=== PATIENT | male | born 1980 | race Two or more races ===

== ENCOUNTER 2023-12-28 09:11 | Emergency (ER) | payer MEDICAID ==
[~2023-12-28] VITALS: Ht 188 cm; Wt 116.8 kg
[2023-12-28 09:42] VITALS: BP 142/91; PULSE 103; RESP 16; TEMP 98.6; O2SAT 97
[2023-12-28] MEDS: KETOROLAC TROMETH 60MG/2ML VIAL IM ONE (09:54)
[2023-12-28] MEDS ORDERED: TRAM-626 PO (10:53)
== END 2023-12-28 10:57 | disposition home or self-care (01) ==
LOC: ER 09:11
DX: M23.8X2 Other internal derangements of left knee (principal); M25.562 Pain in left knee; I10 Essential (primary) hypertension
CPT/HCPCS: 73562; 96372; 99283; J1885

== ENCOUNTER 2024-03-24 08:55 | Inpatient (IN) | payer MEDICAID ==
[~2024-03-24] VITALS: Ht 188 cm; Wt 135.6 kg
[~2024-03-24 08:55] MED LIST: BACL10TA PO; LIDO1.8P TOP; TRAM-626 PO
[2024-03-24 10:06] VITALS: PULSE 102; RESP 20; O2SAT 97
--- NOTE | 2024-03-24 11:34 | ED.PDOC ---
GI ASSESSMENT HPI Comments 43 y.o male with PMHx of Liver cirrhosis, DM, HTN and DM, presents to the ED via EMS for a chief complaint of abdominal distention and pain that started 4-5 days ago. Patient reports being seen at this hospital around February 2024 to get a paracentesis done, was admitted but ended up leaving against medical advice s/p being told he was not "distended enough to be drained". Patient states now distention has increased which is causing SOB and abdominal discomfort with movement and bending. Patient's last paracentesis was 11 months ago, had about 8 liters drained. Patient has a PCP appointment until May of 2024 but is unable to wait any longer to get a paracentesis. Patient denies any nausea, vomiting, diarrhea, fever, chills, chest pain, dysuria. He is also taking Baclofen for left knee pain and has a history of cocaine, alcohol and tobacco use [facility] records from his last visit. Chief Complaint: Abdominal Pain Time Seen by MD: 11:09 Primary Care Provider: none Reviewed Notes: Nurses Notes, Medications, Allergies Allergies: Coded Allergies: NO KNOWN ALLERGIES (Unverified , 12/28/23) Home Meds Active Scripts Tramadol HCl (Tramadol HCl) 50 Mg Tab, 50 MG PO TID, #20 TAB Prov:AZ TEJEDA 12/28/23 Reported Medications Lidocaine (Ztlido) 1.8 % Pad, 1 PATCH TOP DAILYPRN PRN 02/29/24 Baclofen (Baclofen) 10 Mg Tab, 1 TAB PO BID 02/29/24 Information Source: Patient Mode of Arrival: EMS Timing: Days (4-5) Duration: Since onset Quality: Aching Vomitus: None Stool: Normal Severity: Moderate Recent: None Pain Location: Diffuse Associated sign and symptoms: Abdominal Pain, Other (SOB ) Past Medical History PAST MEDICAL HISTORY: DM, HTN, Liver Surgical History (Other): paracentesis, left clavicle and bone graft. Family History Family History: Reviewed,noncontributory to illness Social History Smoker: Non-Smoker Alcohol: Denies ETOH Use Drugs: Denies Drug Use Lives In: Home Constitutional: denies: chills, diaphoresis, fatigue, fever, malaise, sweats, weakness, others EENTM: denies: blurred vision, double vision, ear bleeding, ear discharge, ear drainage, ear pain, ear ringing, eye pain, eye redness, hearing loss, mouth pain, mouth swelling, nasal discharge, nose bleeding, nose congestion, nose pa in, photophobia, tearing, throat pain, throat swelling, voice changes, others Respiratory: reports: SOB at rest, shortness of breath; denies: cough, hemoptysis, orthopnea, SOB with excertion, stridor, wheezing, others Cardiovascular: denies: chest pain, dizzy spells, diaphoresis, Dyspnea on exertion, edema, irregular heart beat, left arm pain, lightheadedness, palpitations, PND, syncope, others Gastrointestinal: reports: abdomen distended, abdominal pain; denies: blood streaked bowels, constipated, diarrhea, dysphagia, difficulty swallowing, hematemesis, melena, nausea, poor appetite, poor fluid intake, rectal bleeding, rectal pain, vomiting, others Genitourinary: denies: burning, dysuria, flank pain, frequency, hematuria, incontinence, penile discharge, penile sore, pain, testicle pain, testicle swelling, urgency, others Neurological: denies: dizziness, fainting, headache, left sided numbness, left sided weakness, numbness, paresthesia, pre-existing deficit, right sided numbness, right sided weakness, seizure, speech problems, tingling, tremors, weakness, others Musculoskeletal: denies: back pain, gout, joint pain, joint swelling, muscle pain, muscle stiffness, neck pain, others Integumetry: denies: bruises, change in color, change in hair/nails, dryness, laceration, lesions, lumps, rash, wounds, others Allergic/Immunocompromised: denies: Difficulty Healing, Frequent Infections, H eliana, Itching, others Hematologic/Lymphatic: denies: anemia, blood clots, easy bleeding, easy bruising, swollen glands, others Endocrine: denies: excessive hunger, excessive sweating, excessive thirst, excessive urination, flushing, intolerance to cold, intolerance to heat, unexplained weight gain, unexplained weight loss, others Psychiatric: denies: anxiety, bipolar disorder, depression, hopeless, panic disorder, schizophrenia, sleepless, suicidal, others All Other Systems: Reviewed and Negative Physical Exam General Appearance: Mild Distress HEENT: Other (Pupils symmetric. Moist mucous membranes.) Neck: Full Range of Motion, Normal Inspection Respiratory: Decreased Breath Sounds, No Accessory Muscle Use, Other (Tachypneic) Cardiovascular: No JVD, Tachycardia Breast Exam: Deferred Gastrointestinal: Diffuse, Distended, Tenderness, Other (Severe ascites) Genitalia: Deferred Pelvic: Deferred Rectal: Deferred Extremities: Normal inspection, Normal range of motion, Non-tender Neurologic: Alert (Oriented x4), Normal Affect, Normal Mood, Other (Ambulatory without difficulty. No gross focal deficit.) Cerebellar Function: NOT DONE Reflexes: NOT DONE Skin: Dry, Normal Color, Warm Lymphatic: NOT DONE Was a procedure done? Was a procedure done?: No GI differential Dx Differential Diagnosis: Constipation, Hepatitis, Inflammatory BD, Ischemic Bowel, UTI, Electrolyte Imbalance, Bacterial, Parasitic, Viral, Impaction, Esophageal Varicies, Other (Decompensated liver failure with severe ascites) Other Differential Diagnosis Spontaneous bacterial peritonitis X-Ray, Labs, Meds, VS Vital Signs Date Time Temp Pulse Resp B/P (MAP) Pulse Ox O2 Delivery O2 Flow Rate FiO2 03/24/24 12:53 104 19 121/85 03/24/24 12:53 104 19 121/85 (97) 95 03/24/24 11:49 133/76 03/24/24 11:49 102 18 133/76 03/24/24 10:06 102 20 97 Room Air* 0 21 03/24/24 09:06 99.0 104 22 130/74 (92) 99 03/24/24 08:58 99.0 104 22 130/74 (92) 99 99.0 Lab Test 03/24/24 12:30 03/24/24 11:38 Range/Units Urine Color Yellow Yellow Urine Clarity Clear Clear Urine pH 6.0 5.0-9.0 Urine Specific [place] 1.019 1.001-1.035 Urine Protein Negative Negative Urine Ketones Negative Negative Urine Blood Negative Negative /uL Urine Nitrite Negative Negative Urine Bilirubin Negative Negative Urine Urobilinogen 6 Negative mg/dL Urine Leukocyte Esterase Negative Negative /uL Urine RBC None seen 0 - 3 /hpf Urine WBC <1 0 - 3 /hpf Urine Squamous Epithelial Cells Few <5 /hpf Urine Bacteria Few H None Seen /hpf Urine Mucus Few None Seen Urine Glucose Trace Normal mg/dL White Blood Count 6.5 4.4-10.8 10^3/uL Red Blood Count 3.65 L 4.5-5.90 10^6/uL Hemoglobin 11.8 L 13.5-17.5 g/dL Hematocrit 34.9 L 41.0-53.0 % Mean Corpuscular Volume 95.6 80.0-100.0 fL Mean Corpuscular Hemoglobin 32.3 H 28.0-32.0 pg Mean Corpuscular Hemoglobin Concent 33.8 32.0-36.0 g/dL Red Cell Distribution Width 15.3 H 11.8-14.3 % Platelet Count 199 140-450 10^3/uL Mean Platelet Volume 7.6 6.9-10.8 fL Neutrophils (%) (Auto) 66.9 37.0-80.0 % Lymphocytes (%) (Auto) 20.5 10.0-50.0 % Monocytes (%) (Auto) 9.2 0.0-12.0 % Eosinophils (%) (Auto) 2.9 0.0-7.0 % Basophils (%) (Auto) 0.5 0.0-2.0 % Neutrophils # (Auto) 4.4 1.6-8.6 10 ^3/uL Lymphocytes # (Auto) 1.3 0.4-5.4 10 ^3/uL Monocytes # (Auto) 0.6 0-1.3 10 ^3/uL Eosinophils # (Auto) 0.2 0-0.8 10 ^3/uL Basophils # (Auto) 0 0-0.2 10 ^3/uL Nucleated Red Blood Cells 0.0 % Sodium Level 140 136-145 mmol/L Potassium Level 3.5 3.5-5.1 mmol/L Chloride Level 110 H 98-107 mmol/L Carbon Dioxide Level 25 20-31 mmol/L Anion Gap 5 5-15 Blood Urea Nitrogen 10 9-23 mg/dL Creatinine 0.75 0.700-1.30 mg/dL Glomerular Filtration Rate Calc 116 >90 mL/min BUN/Creatinine Ratio 13.3 10.0-20.0 Serum Glucose 80 74-106 mg/dL Calcium Level 8.4 L 8.7-10.4 mg/dL Total Bilirubin 0.9 0.2-1.0 mg/dL Aspartate Amino Transferase (AST) 77 H 13-40 U/L Alanine Aminotransferase (ALT) 32 7-40 U/L Alkaline Phosphatase 195 H 46-116 U/L Ammonia 108 H 11-32 umol/L Total Protein 8.0 5.7-8.2 g/dL Albumin 2.7 L 3.2-4.8 g/dL Current Medications Medications (Trade) Dose Ordered Sig/Laverne Route Start Time Stop Time Status Last Admin Morphine Sulfate 4 mg ONCE ONCE IV 03/24/24 11:15 03/24/24 11:16 DC 03/24/24 11:49 Ondansetron HCl (Zofran) 4 mg ONCE ONCE IV 03/24/24 11:15 03/24/24 11:16 DC 03/24/24 11:49 Furosemide (Lasix Injection) 40 mg ONCE ONCE IV 03/24/24 11:15 03/24/24 11:16 DC 03/24/24 11:49 Spironolactone (Aldactone) 50 mg ONCE ONCE PO 03/24/24 11:15 03/24/24 11:16 DC 03/24/24 11:50 X-Ray, Labs, Meds, VS Comment 43 y.o male with PMHx of Liver cirrhosis, DM, HTN and DM complaining of abdominal distention Vitals remarkable for heart rate 104, respiratory rate 22 Exam remarkable for diffuse abdominal distention consistent with severe ascites Rhythm strip independently interpreted by me: Sinus tach, rate 102, no ectopy. CT abdomen and pelvis IMPRESSION: 1. Cirrhosis and stigmata of portal hypertension. 2. Large volume ascites. CBC unremarkable, CMP unremarkable, ammonia level elevated at 108, UA unremarkable Patient treated with the following in the ED: Morphine 4 mg IV, Zofran 4 mg IV, Lasix 40 mg IV, Aldactone 50 mg p.o. Patient did not have significant urine output in the ED, however pain improved. Plan is to admit the patient for diagnostic and therapeutic paracentesis Time of 1ST Reevaluation: 11:22 Reevaluation 1ST: Unchanged Patient Education/Counseling: Diagnosis, Treatment, Prognosis Family Education/Counseling: No Family Present Departure 1 Departure Time of Disposition: 15:21 Impression: Primary Impression: Liver failure Qualified Codes: K72.90 - Hepatic failure, unspecified without coma Additional Impression: Ascites Qualified Codes: K70.31 - Alcoholic cirrhosis of liver with ascites Disposition: ADMITTED INPATIENT Admit to: Med Surg Condition: Guarded Critical Care Note Critical Care Time?: No Stability Stability form required: No I personally scribed for HANNAH YUNG MD ([email or web address]) on 03/24/24 at 11:34. Electronically submitted by Niesha Barth ([facility]). HANNAH YUNG MD Mar 24, 2024 11:34
[2024-03-24] MEDS: ONDANSETRON HCL 4 MG/2 ML VIAL IV ONE (11:49)
[2024-03-24] MEDS: FUROSEMIDE 40 MG/4 ML VIAL IV ONE (11:49)
[2024-03-24] MEDS: MORPHINE SULFATE 4 MG/ML SYR/VIAL IV ONE (11:49)
[2024-03-24] MEDS: SPIRONOLACTONE 25 MG TAB PO ONE (11:50)
--- NOTE | 2024-03-24 11:56 | DVH ---
Exam: CT CT AB PEL WO CON-NO ORAL OR IV History: abd pain/distention Comparison Study: Ultrasound of the abdomen dated 03/01/2024 Technique: Multidetector spiral CT of the abdomen and pelvis was performed from lung bases to pubic s ymphysis. Imaging was performed without intravenous contrast. Coronal and sagittal multiplanar refor mats were obtained from the axial data set by the technologist. Radiation Dose : 1. Abdomen/Pelvis: CTDIvol 24.21 mGy, DLP 1566.5 mGy*cm. Findings: Evaluation of vasculature and solid organs is limited due to lack of intravenous contrast use. Lung Bases: Bilateral lower lobe atelectasis. Visualized portions of the heart and pericardium are un remarkable. Liver: The liver is shrunken and nodular in contour. Gallbladder and Biliary Tree: The gallbladder is unremarkable. No intrahepatic or extrahepatic bilia ry ductal dilatation. Spleen: Spleen is enlarged measuring 16.7 cm. Pancreas: The pancreas is grossly unremarkable. Adrenal Glands: Unremarkable Kidneys: Kidneys are unremarkable without calculi or hydronephrosis. GI tract: The stomach is grossly normal in appearance. No evidence of small bowel wall thickening or abnormal dilatation to suggest bowel obstruction. The colon is unremarkable. The appendix is visual ized and is normal. Peritoneum/mesentery/retroperitoneum. No evidence of free intraperitoneal air. Large volume abdominop elvic ascites. Increased number of mesenteric, periportal and retroperitoneal lymph nodes. A right pa ra-aortic lymph node measures 1.6 cm in short axis. Abdominal Wall: Unremarkable. Vasculature: The visualized abdominal aorta is normal in size and caliber. Evaluation of abdominal a nd pelvic vessels is limited due to lack of intravenous contrast. Urinary Bladder: Grossly unremarkable for degree of distention. Pelvic Organs: Unremarkable Musculoskeletal: No aggressive focal bony lesions, acute fractures or dislocation. Soft tissues: Body wall anasarca. IMPRESSION: 1. Cirrhosis and stigmata of portal hypertension. 2. Large volume ascites.
[2024-03-24 12:07] LABS: Basophils # (auto) 0 10 ^3/uL (0-0.2); Basophils % (auto) 0.5 % (0.0-2.0); Eosinophils # (auto) 0.2 10 ^3/uL (0-0.8); Eosinophils % (auto) 2.9 % (0.0-7.0); Hematocrit 34.9 % (41.0-53.0); Hemoglobin 11.8 g/dL (13.5-17.5); Lymphocytes # (auto) 1.3 10 ^3/uL (0.4-5.4); Lymphocytes % (auto) 20.5 % (10.0-50.0); Mean Corpuscular Hemoglobin 32.3 pg (28.0-32.0); Mean Corpuscular Hgb Conc. 33.8 g/dL (32.0-36.0); Mean Corpuscular Volume 95.6 fL (80.0-100.0); Monocytes # (auto) 0.6 10 ^3/uL (0-1.3); Monocytes % (auto) 9.2 % (0.0-12.0); Neutrophils # (auto) 4.4 10 ^3/uL (1.6-8.6); Neutrophils % (auto) 66.9 % (37.0-80.0); Platelet Count (auto) 199 10^3/uL (140-450); Red Blood Cells 3.65 10^6/uL (4.5-5.90); Red Cell Distribution Width 15.3 % (11.8-14.3); White Blood Cell 6.5 10^3/uL (4.4-10.8)
[2024-03-24 12:24] LABS: Alanine Aminotransferase 32 U/L (7-40); Anion Gap 5 (5-15); BUN/Creatinine Ratio 13.3 (10.0-20.0); Bilirubin, Total 0.9 mg/dL (0.2-1.0); Blood Urea Nitrogen 10 mg/dL (9-23); Carbon Dioxide 25 mmol/L (20-31); Glucose 80 mg/dL (74-106); Sodium 140 mmol/L (136-145)
[2024-03-24 12:32] LABS: Albumin 2.7 g/dL (3.2-4.8); Alkaline Phosphatase 195 U/L (46-116); Aspartate Aminotransferase 77 U/L (13-40); Calcium 8.4 mg/dL (8.7-10.4); Chloride 110 mmol/L (98-107); Potassium 3.5 mmol/L (3.5-5.1)
[2024-03-24 14:29] LABS: Urine Bacteria FEW /hpf (None Seen); Urine Blood Negative /uL (Negative); Urine Clarity Clear (Clear); Urine Color Yellow (Yellow); Urine Mucus FEW (None Seen); Urine Protein, UAD Negative (Negative); Urine Specific Gravity 1.019 (1.001-1.035); Urine Squamous Epithelial Cell FEW /hpf (<5); Urine Urobilinogen 6 mg/dL (Negative); Urine WBC <1 /hpf (0 - 3)
[2024-03-24] MEDS ORDERED: ONDANSETRON HCL 4 MG/2 ML VIAL IV PRN (16:45)
[2024-03-24] MEDS ORDERED: NITROGLYCERIN 0.4 MG SL TAB SL PRN (16:45)
[2024-03-24] MEDS ORDERED: traMADol HCL 50 MG TAB PO PRN (16:45)
[2024-03-24] MEDS ORDERED: ALBUMIN 25% 100 ML IV ONE (16:45)
[2024-03-24] MEDS ORDERED: MORPHINE SULFATE INJ 2 MG/ml SYRG IV PRN (16:45)
[2024-03-24] MEDS ORDERED: DOCUSATE SOD 100 MG CAP PO PRN (16:45)
--- NOTE | 2024-03-24 17:07 | DVHHP2 ---
History of Present Illness Reason for Visit: Alcoholic cirrhosis of liver with ascites History of Present Illness The patient is a 43-year-old male with past medical history of liver disease, hypertension, and diabetes mellitus who presented to [facility] ED with complaint of abdominal distention. Patient reports he was admitted at this hospital in February 2024 to get a paracentesis done, but ended up leaving against medical advice because he was being told his abdomen was not "distended enough to be drained". Patient reports symptoms progressively get worse with sh ortness of breaths, abdominal discomfort, difficulty bending, movement, getting worse that prompted this visit. Patient was seen and evaluated in the ED, laboratory data shows WBC 6.5, platelets 199, sodium 140, potassium 3.5, BUN 10, creatinine 0.75, GFR 116, glucose 80, AST 77, ALT 32, calcium 8.4, albumin 2.7, ammonia 108, blood pressure 121/85, heart rate 104, temperature 99.0 F, O2 saturation 97% on oxygen. Abdomen/pelvis CT revealing cirrhosis and stigmata of portal hypertension, last volume ascites. Patient was started on lactulose 30 mL by mouth, scheduled for possible ultrasound-guided paracentesis, please see medication orders section in the computer. On my assessment, patient denied chest pain, no headache, no dizziness, no diaphoresis, no abdominal pain at this moment, no diarrhea, no nausea, no vomiting, no fever, no chills. Patient was admitted for further evaluation and medical management. Past Medical History DM, HTN, Liver Disease Past Surgical History Paracentesis, left clavicle and bone graft. Family History Reviewed, noncontributory to the management of this case. Past Social History The patient lives at home, denies smoking, alcohol or illicit drugs abuse. Review of Systems Constitutional: No: Fever, Chills, Sweats, Weakness, Malaise, Other Eyes: No: Pain, Vision change, Conjunctivae inflammation, Eyelid inflammation, Other, Redness ENT: No: Ear pain, Ear discharge, Nose pain, Nose discharge, Nose congestion, Mouth pain, Mouth swelling, Throat pain, Throat swelling, Other Respiratory: Shortness of breath, Other (SOB at rest); No: Cough, Dry, SOB with excertion, Wheezing, Hemoptysis, Pleuritic Pain, Sputum, Wheezing Cardiovascular: No: Chest Pain, Palpitations, Orthopnea, Paroxysmal Noc. Dyspnea, Edema, Lt Headedness, Other Gastrointestinal: Abdominal Pain, Other (Distended abdomen); No: Nausea, Vomiting, Diarrhea, Constipation, Melena, Hematochezia Genitourinary: No Dysuria, No Frequency, No Incontinence, No Hematuria, No Retention, No Other Musculoskeletal: No: other, neck pain, shoulder pain, arm pain, back pain, hand pain, leg pain, foot pain Skin: No: Rash, Lesions, Jaundice, Bruising, Other Neurological: No: Weakness, Numbness, Incoordination, Change in speech, Confusion, Seizures, Other Allergies: Coded Allergies: NO KNOWN ALLERGIES (Unverified , 12/28/23) Exam Vital Signs Vital Signs Date Time Temp Pulse Resp B/P (MAP) Pulse Ox O2 Delivery O2 Flow Rate FiO2 03/24/24 12:53 104 19 121/85 03/24/24 12:53 95 03/24/24 10:06 Room Air* 0 21 03/24/24 09:06 99.0 General Appearance: Alert, Oriented X3, Cooperative, No acute distress HEENT: Atraumatic, PERRLA, EOMI, Mucous membr. moist/pink Respiratory: Clear to auscultation, Normal air movement Cardiovascular: Regular rate, Normal S1, Normal S2, No murmurs Abdominal: Normal bowel sounds, Soft, No tenderness, No masses, Other (Distended abdomen) Extremities: No clubbing, No cyanosis, No edema, Normal pulses, No tenderness/swelling Skin: No rashes, No breakdown, No significant lesion Neuro: Normal gait, Normal speech, Strength at 5/5 X4 ext, Normal tone, Sensation intact, Cranial nerves 3-12 NL, Reflexes 2+ Psych/Mental Status: Mental status NL, Mood NL Labs/Xrays Labs Test 03/24/24 12:30 03/24/24 11:38 Range/Units Urine Color Yellow Yellow Urine Clarity Clear Clear Urine pH 6.0 5.0-9.0 Urine Specific [place] 1.019 1.001-1.035 Urine Protein Negative Negative Urine Ketones Negative Negative Urine Blood Negative Negative /uL Urine Nitrite Negative Negative Urine Bilirubin Negative Negative Urine Urobilinogen 6 Negative mg/dL Urine Leukocyte Esterase Negative Negative /uL Urine RBC None seen 0 - 3 /hpf Urine WBC <1 0 - 3 /hpf Urine Squamous Epithelial Cells Few <5 /hpf Urine Bacteria Few H None Seen /hpf Urine Mucus Few None Seen Urine Glucose Trace Normal mg/dL White Blood Count 6.5 4.4-10.8 10^3/uL Red Blood Count 3.65 L 4.5-5.90 10^6/uL Hemoglobin 11.8 L 13.5-17.5 g/dL Hematocrit 34.9 L 41.0-53.0 % Mean Corpuscular Volume 95.6 80.0-100.0 fL Mean Corpuscular Hemoglobin 32.3 H 28.0-32.0 pg Mean Corpuscular Hemoglobin Concent 33.8 32.0-36.0 g/dL Red Cell Distribution Width 15.3 H 11.8-14.3 % Platelet Count 199 140-450 10^3/uL Mean Platelet Volume 7.6 6.9-10.8 fL Neutrophils (%) (Auto) 66.9 37.0-80.0 % Lymphocytes (%) (Auto) 20.5 10.0-50.0 % Monocytes (%) (Auto) 9.2 0.0-12.0 % Eosinophils (%) (Auto) 2.9 0.0-7.0 % Basophils (%) (Auto) 0.5 0.0-2.0 % Neutrophils # (Auto) 4.4 1.6-8.6 10 ^3/uL Lymphocytes # (Auto) 1.3 0.4-5.4 10 ^3/uL Monocytes # (Auto) 0.6 0-1.3 10 ^3/uL Eosinophils # (Auto) 0.2 0-0.8 10 ^3/uL Basophils # (Auto) 0 0-0.2 10 ^3/uL Nucleated Red Blood Cells 0.0 % Sodium Level 140 136-145 mmol/L Potassium Level 3.5 3.5-5.1 mmol/L Chloride Level 110 H 98-107 mmol/L Carbon Dioxide Level 25 20-31 mmol/L Anion Gap 5 5-15 Blood Urea Nitrogen 10 9-23 mg/dL Creatinine 0.75 0.700-1.30 mg/dL Glomerular Filtration Rate Calc 116 >90 mL/min BUN/Creatinine Ratio 13.3 10.0-20.0 Serum Glucose 80 74-106 mg/dL Calcium Level 8.4 L 8.7-10.4 mg/dL Total Bilirubin 0.9 0.2-1.0 mg/dL Aspartate Amino Transferase (AST) 77 H 13-40 U/L Alanine Aminotransferase (ALT) 32 7-40 U/L Alkaline Phosphatase 195 H 46-116 U/L Ammonia 108 H 11-32 umol/L Total Protein 8.0 5.7-8.2 g/dL Albumin 2.7 L 3.2-4.8 g/dL PATIENT: JESUS ALBERTO MALDONADO JRACCT: [id number] UNIT: [id number] : 1980 LOC: ER ROOM / BED: / AGE / SEX: 43 / M ADM STATUS: REG ER SERVICE 1115 ORDERING PHYSICIAN: HANNAH YUNG MD PROCEDURE(s): ABPL - CT AB PEL WO CON-NO ORAL OR IV REASON: abd pain/distention ORDER NUMBER(s): [id number], ACCESSION NUMBER(s): [id number] Exam: CT CT AB PEL WO CON-NO ORAL OR IV History: abd pain/distention Comparison Study: Ultrasound of the abdomen dated 03/01/2024 Technique: Multidetector spiral CT of the abdomen and pelvis was performed from lung bases to pubic symphysis. Imaging was performed without intravenous con trast. Coronal and sagittal multiplanar reformats were obtained from the axial data set by the technologist. Radiation Dose : 1. Abdomen/Pelvis: CTDIvol 24.21 mGy, DLP 1566.5 mGy*cm. Findings: Evaluation of vasculature and solid organs is limited due to lack of intravenous contrast use. Lung Bases: Bilateral lower lobe atelectasis. Visualized portions of the heart and pericardium are unremarkable. Liver: The liver is shrunken and nodular in contour. Gallbladder and Biliary Tree: The gallbladder is unremarkable. No intrahepatic or extrahepatic biliary ductal dilatation. Spleen: Spleen is enlarged measuring 16.7 cm. Pancreas: The pancreas is grossly unremarkable. Adrenal Glands: Unremarkable Kidneys: Kidneys are unremarkable without calculi or hydronephrosis. GI tract: The stomach is grossly normal in appearance. No evidence of small bowel wall thickening or abnormal dilatation to suggest bowel obstruction. The colon is unremarkable. The appendix is visualized and is normal. Peritoneum/mesentery/retroperitoneum. No evidence of free intraperitoneal air. Large volume abdominopelvic ascites. Increased number of mesenteric, periportal and retroperitoneal lymph nodes. A right para-aortic lymph node measures 1.6 cm in short axis. Abdominal Wall: Unremarkable. Vasculature: The visualized abdominal aorta is normal in size and caliber. Evaluation of abdominal and pelvic vessels is limited due to lack of intravenous contrast. Urinary Bladder: Grossly unremarkable for degree of distention. Pelvic Organs: Unremarkable Musculoskeletal: No aggressive focal bony lesions, acute fractures or dislocation. Soft tissues: Body wall anasarca. IMPRESSION: 1. Cirrhosis and stigmata of portal hypertension. 2. Large volume ascites. Assessment/Plan Assessment/Plan Liver failure Hepatic failure, unspecified without coma Abdominal pain Ascites Alcoholic cirrhosis of liver with ascites Plan 1. Admit to med surge unit 2. Breathing treatment 3. Pain control management 4. Management of fluids and electrolytes 5. Consultation for GI/hospitalist 6. Diagnostic tests abdomen/pelvis CT 7. DVT prophylaxis-on SCDs 8. Repeat labs CBC, CMP in a.m. 9. Continue with current medical management 10. Treatment plan discussed with patient and RN. Patient verbalized understanding. Plan discussed with: Patient, Other (RN) My Orders Orders - ADRIANA HENNING DNP Procedure Category Date Status Time Spironolactone PHA 03/25/24 Transmitted (Aldactone) 10:00 Lactulose Oral PHA 03/24/24 Transmitted 18:00 Paracentesis US 03/24/24 Transmitted 16:36 PTPTT LAB 03/24/24 Transmitted 16:36 Albumin Ivpb PHA 03/24/24 Transmitted 16:45 * Gi Dvh Data Governance Consultant CONS 03/24/24 Transmitted 16:36 Admit ADMIT 03/24/24 Transmitted 16:36 Allergies JEANNETTE 03/24/24 Transmitted 16:36 Code Status CODE 03/24/24 Transmitted 16:36 Sodium Chloride Lock PHA 03/24/24 Transmitted (Saline Lock Ns) 22:00 Oxygen Per Hour RT 03/24/24 Transmitted 16:36 Hydrocodone-Acet PHA 03/24/24 Transmitted 5/325mg Tab ([place] 16:45 Ondansetron Hcl PHA 03/24/24 Transmitted (Zofran) 16:45 Docusate Sodium PHA 03/24/24 Transmitted Capsule (Colace 16:45 Complete Blood Count LAB 03/25/24 Verified 04:00 Comprehensive LAB 03/25/24 Verified Metabolic Panel 04:00 Cardiac DIET 03/24/24 Transmitted Diet-2gna,Lofat,Lochol Dinner Condition: Serious [facility] 03/24/24 Transmitted 16:36 Bedrest With Bathroom JEANNETTE 03/24/24 Transmitted Privileg 16:36 Sequential [facility] 03/24/24 Transmitted Compression Device Nitroglycerin [facility] 03/24/24 Transmitted Sublingual (Ntrostat 16:45 Morphine Sulfate [facility] 03/24/24 Transmitted Injection 16:45 Notify Md Of Changes [facility] 03/24/24 Transmitted From Base 16:36 Emergency Dysrhythmia [facility] 03/24/24 Transmitted Protocol 16:36 Oxygen By Nasal RT 03/24/24 Transmitted Cannula 16:36 Problem List: (1) Liver failure (2) Alcoholic cirrhosis of liver with ascites (3) Abdominal pain (4) Ascites (5) Hepatic failure, unspecified without coma Date of Service: Mar 24, 2024 Billing Provider: ADRIANA HENNING DNP Common Visit Codes: [id number]-[id number] INP/OBS CARE (HIGH) ADRIANA HENNING DNP Mar 24, 2024 17:07
--- NOTE | 2024-03-24 17:20 | DVH ---
ULTRASOUND ABDOMEN LIMITED INDICATION: ASCITES TECHNIQUE: Ultrasound of the 4 quadrants of the abdominal cavity. COMPARISON: US ABDOMEN LIMITED on DOS: 02/29/24 FINDINGS: There is moderate amount of ascites with fluid seen in all 4 quadrants of the abdomen. IMPRESSION: 1. Moderate amount of ascites. HS:Y
[2024-03-24 17:48] LABS: INR 1.28 (0.9-1.15); Partial Thromboplastin Time 29.4 SEC (24.5-34.5); Prothrombin Time 13.2 sec (9.3-11.8)
[2024-03-24] MEDS: LACTULOSE 20Gm/30ML SOLN PO SCH (18:36)
[2024-03-24] MEDS: ALBUMIN 25% 100 ML IV ONE (18:49)
[2024-03-24 20:03] VITALS: PULSE 85; RESP 20; O2SAT 99
[2024-03-24 20:47] VITALS: PULSE 84; RESP 19; O2SAT 97
[2024-03-24 21:35] VITALS: BP 134/80; PULSE 85; RESP 20; TEMP 98.4; O2SAT 98
[2024-03-24 21:50] VITALS: BP 134/80; PULSE 85; RESP 20; TEMP 98.4; O2SAT 98
[2024-03-24] MEDS: SODIUM CHLOR 0.9% PF (SALINE LOCK) 10ML VIAL/SYR IV SCH (22:00)
[2024-03-24] MEDS: HYDROcodone-ACET 5/325MG TAB PO PRN (22:10)
[2024-03-24] MEDS ORDERED: GLIP5TAB21 PO (23:45)
[2024-03-25 05:00] VITALS: BP 98/63; PULSE 83; RESP 19; TEMP 98; O2SAT 97
[2024-03-25 07:00] LABS: Basophils # (auto) 0.1 10 ^3/uL (0-0.2); Basophils % (auto) 1.1 % (0.0-2.0); Eosinophils # (auto) 0.2 10 ^3/uL (0-0.8); Hematocrit 29.9 % (41.0-53.0); Hemoglobin 10.3 g/dL (13.5-17.5); Lymphocytes # (auto) 1.3 10 ^3/uL (0.4-5.4); Lymphocytes % (auto) 23.9 % (10.0-50.0); Mean Corpuscular Hemoglobin 32.7 pg (28.0-32.0); Mean Corpuscular Hgb Conc. 34.3 g/dL (32.0-36.0); Mean Corpuscular Volume 95.3 fL (80.0-100.0); Monocytes # (auto) 0.7 10 ^3/uL (0-1.3); Monocytes % (auto) 12.5 % (0.0-12.0); Neutrophils # (auto) 3.4 10 ^3/uL (1.6-8.6); Neutrophils % (auto) 59.5 % (37.0-80.0); Nucleated Red Blood Cells % 0.3 %; Platelet Count (auto) 162 10^3/uL (140-450); Red Blood Cells 3.14 10^6/uL (4.5-5.90); Red Cell Distribution Width 15.1 % (11.8-14.3); White Blood Cell 5.6 10^3/uL (4.4-10.8)
[2024-03-25 07:16] LABS: Alanine Aminotransferase 25 U/L (7-40); Anion Gap 7 (5-15); BUN/Creatinine Ratio 13.4 (10.0-20.0); Blood Urea Nitrogen 11 mg/dL (9-23); Carbon Dioxide 22 mmol/L (20-31); Potassium 3.9 mmol/L (3.5-5.1); Sodium 140 mmol/L (136-145)
[2024-03-25 07:17] LABS: Albumin 2.4 g/dL (3.2-4.8); Alkaline Phosphatase 165 U/L (46-116); Aspartate Aminotransferase 83 U/L (13-40); Calcium 8.3 mg/dL (8.7-10.4); Chloride 111 mmol/L (98-107); Glucose 120 mg/dL (74-106); Total Protein 7.1 g/dL (5.7-8.2)
[2024-03-25 08:25] VITALS: PULSE 80; RESP 20; O2SAT 96
[2024-03-25 09:00] VITALS: BP 106/58; PULSE 80; RESP 20; TEMP 97.8; O2SAT 96
[2024-03-25] MEDS: SPIRONOLACTONE 25 MG TAB PO SCH (10:02)
--- NOTE | 2024-03-25 11:42 | DVH ---
US PARACENTESIS, HISTORY: ASCITES PROCEDURE: Informed consent was obtained. The patient was placed in supine position. A limited locali zation ultrasound of the abdomen was obtained, and the skin site over the largest pocket of fluid was marked and entry site was prepped with chlorhexidine which was allowed to dry and draped in the usua l sterile fashion. Time out was performed. Following administration of 1% lidocaine local anesthetic, a 5 [place] centesis needle catheter was percutaneously inserted into the peritoneal collection until fluid was aspirated. The catheter was advanced into the fluid collection and [place] [id number] cc of fluid was aspirated and specimen sent for appropriate cultures/cytology/cultures and c ytology. The catheter was then removed and a sterile dressing applied. No immediate complication was identified. FINDINGS: Limited ultrasound imaging demonstrates moderate to large ascites. Aspirated fluid was clou dy and pink. IMPRESSION: US-guided paracentesis with 10.5L removed.
[2024-03-25] MEDS: ALBUMIN 25% 100 ML IV SCH (12:45)
[2024-03-25 13:00] VITALS: BP 97/55; PULSE 81; RESP 18; TEMP 98.6; O2SAT 95
[2024-03-25 14:45] LABS: Body Fluid pH 9
[2024-03-25 14:58] LABS: Body Fluid Polymorphonuclear 10 % (0-25); Body Fluid Red Blood Cells 4772 CUMM (0-2000); Body Fluid White Blood Cells 122 CUMM (0-200)
--- NOTE | 2024-03-25 16:23 | DVHCONRES ---
Date Seen: Mar 25, 2024 Resident Creating Document: AISHA GEORGES RESIDENT Referring Physician Roberto LEMUS Reason for Consultation Liver Cirrhosis History of Present Illness Mr. Maldonado, a 43-year-old male with a history of liver disease, hypertension, and diabetes mellitus presented to [facility] ED with abdominal distention. He had previously left against medical advice in February 2024 when told his abdomen was not distended enough for paracentesis. His symptoms worsened, prompting this visit. Lab results showed elevated ammonia levels and other abnormalities. A CT scan revealed cirrhosis and portal hypertension with ascites. He was started on lactulose and scheduled for possible ultrasound- guided paracentesis. He denied other symptoms like chest pain or nausea and was admitted for further evaluation and management. His past medical history includes diabetes, hypertension, and liver disease, with past surgeries including paracentesis and a left clavicle bone graft. He denies smoking, alcohol, or drug abuse. Past Medical History DM, HTN, Liver Disease, liver cirrhosis, ascites, polysubstance abuse. Past Surgical History Paracentesis, left clavicle and bone graft. Family History: Patient reports no known family medical history. Family History Reviewed, noncontributory to the management of this case. Social History The patient lives at home, denies smoking, alcohol or illicit drugs abuse. All the patient denies, patient's previous UDS source positive for cocaine, questionable polysubstance abuse history. Allergies: Coded Allergies: NO KNOWN ALLERGIES (Unverified , 12/28/23) Home Meds Active Scripts Tramadol HCl (Tramadol HCl) 50 Mg Tab, 50 MG PO TID, #20 TAB Prov:AZ TEJEDA 12/28/23 Reported Medications Glipizide (Glipizide) 5 Mg Tab, 1 TAB PO DAILY 03/24/24 Lidocaine (Ztlido) 1.8 % Pad, 1 PATCH TOP DAILYPRN PRN 02/29/24 Baclofen (Baclofen) 10 Mg Tab, 1 TAB PO BID 02/29/24 Current Medications Current Medications Medications (Trade) Dose Ordered Sig/Laverne Route PRN Reason Start Time Stop Time Status Last Admin Spironolactone (Aldactone) 25 mg DAILY PO 03/25/24 10:00 03/25/24 15:26 DC 03/25/24 10:02 Lactulose 30 ml Q6HR PO 03/24/24 18:00 03/25/24 15:26 DC 03/25/24 05:36 Sodium Chloride (Saline Lock Ns) 10 ml Q8HR IV 03/24/24 22:00 03/25/24 15:26 DC 03/25/24 12:34 Acetaminophen/ Hydrocodone Bitart ([place] 5/325MG Tab) 1 tab Q4HP PRN PO MODERATE PAIN (4-6 PAIN SCALE) 03/24/24 16:45 03/25/24 15:26 DC 03/24/24 22:10 Ondansetron HCl (Zofran) 4 mg Q4HP PRN IV NAUSEA / VOMITING 03/24/24 16:45 03/25/24 15:26 DC Docusate Sodium (Colace Capsule) 100 mg BIDPRN PRN PO FOR CONSTIPATION 03/24/24 16:45 03/25/24 15:26 DC Nitroglycerin (Ntrostat Sublingual) 0.4 mg Q5MINP PRN SL FOR CHEST PAIN 03/24/24 16:45 03/25/24 15:26 DC Morphine Sulfate 2 mg Q30M PRN IV FOR CHEST PAIN 03/24/24 16:45 03/25/24 15:26 DC Tramadol HCl (Ultram) 50 mg Q6HP PRN PO MILD PAIN (1-3 PAIN SCALE) 03/24/24 16:45 03/25/24 15:26 DC Albumin Human 100 ml @ 100 mls/hr Q1HR IV 03/25/24 12:00 03/25/24 13:59 DC 03/25/24 12:45 Review of Systems CONSTITUTIONAL: Fever, night sweats, weight loss, Lymphadenopathy, ecchymoses, fatigue: Negative DERMATOLOGIC: Rash, New/growing/changing skin lesions: Negative HEENT: Vision change, eye pain, Rhinorrhea, sinus pain, epistaxis, dysphagia, odynophagia, globus sensation, Change in hearing, tinnitus, vertigo, otalgia, Dental problems, oral ulcers or lesions: : Negative ENDOCRINE: Weight change, heat or cold intolerance, tremor, insomnia, neck pain or swelling, Polyuria, polydipsia, polyphagia, Abnormal hair growth, change in nails: Negative CARDIOVASCULAR: Chest pain, palpitations, syncope, Edema, cyanosis, claudication, Orthopnea, paroxysmal nocturnal dyspnea: Negative PULMONARY: Shortness of breath, dyspnea with exertion, Cough, hemoptysis, wheezing, chest pain : Negative GI: Nausea, vomiting, diarrhea, melena, hematochezia, Change in appetite, abdominal pain, change in bowel habits or stools: Negative abdominal swelling, distention, full flanks, abdominal pressure: Positive : Dysuria, frequency, urgency, Urinary incontinence, hematuria, foamy urine, nocturia, Change in libido, erectile dysfunction, Change in menses, dysmenorrhea, dyspaerunia, pelvic pain: : Negative MUSCULOSKELETAL: Joint swelling or pain, muscle pain, back pain: : Negative NEUROLOGIC: Headache, scotoma, Change in smell or taste, change in facial muscles, Muscle weakness, paresthesias, anesthesia, Ataxia, change in speech: Negative PSYCHIATRIC: Depression, anxiety, hallucinations, jacki, suicidal/homicidal thoughts, Binging, purging: Negative Vital Signs Vital Signs Date Time Temp Pulse Resp B/P (MAP) Pulse Ox O2 Delivery O2 Flow Rate FiO2 03/25/24 13:00 98.6 81 18 97/55 (69) 95 98.6 03/25/24 08:25 Room Air* 0 21 Physical Exam GENERAL APPEARANCE: Well developed, well nourished, alert and cooperative, and appears to be in no acute distress. HEAD: normocephalic. EYES: PERRL, EOMI. Fundi normal, vision is grossly intact. EARS: External auditory canals and tympanic membranes clear, hearing grossly intact. NOSE: No nasal discharge. THROAT: Oral cavity and pharynx normal. No inflammation, swelling, exudate, or lesions. Teeth and gingiva in good general condition. NECK: Neck supple, non-tender without lymphadenopathy, masses or thyromegaly. CARDIAC: Normal S1 and S2. No S3, S4 or murmurs. Rhythm is regular. There is no peripheral edema, cyanosis or pallor. Extremities are warm and well perfused. Capillary refill is less than 2 seconds. No carotid bruits. LUNGS: Clear to auscultation and percussion without rales, rhonchi, wheezing or diminished breath sounds. ABDOMEN: Positive bowel sounds. Soft, nondistended, nontender. No guarding or rebound. No masses. Flanks we will, mildly distended, status post paracentesis. MUSKULOSKELETAL: Adequately aligned spine. ROM intact spine and extremities. No joint erythema or tenderness. Normal muscular development. Normal gait. BACK: Examination of the spine reveals normal gait and posture, no spinal deformity, symmetry of spinal muscles, without tenderness, decreased range of motion or muscular spasm. EXTREMITIES: No significant deformity or joint abnormality. No edema. Peripheral pulses intact. No varicosities. LOWER EXTREMITY: Examination of both feet reveals all toes to be normal in size and symmetry, normal range of motion, normal sensation with distal capillary filling of less than 2 seconds without tenderness, swelling, discoloration, nodules, weakness or deformity; examination of both ankles, knees, legs, and hips reveals normal range of motion, normal sensation without tenderness, swelling, discoloration, crepitus, weakness or deformity. NEUROLOGICAL: CN II-XII intact. Strength and sensation symmetric and intact throughout. Reflexes 2+ throughout. Cerebellar testing normal. SKIN: Skin normal color, texture and turgor with no lesions or eruptions. PSYCHIATRIC: The mental examination revealed the patient was oriented to person, place, and time. The patient was able to demonstrate good judgement and reason, without hallucinations, abnormal affect or abnormal behaviors during the examination. Patient is not suicidal. Labs/Diagnostic Data Labs Test 03/25/24 11:50 03/25/24 06:21 03/24/24 17:13 03/24/24 12:30 Range/Units Body Fluid Source Peritoneal fluid Body Fluid pH 9 Body Fluid WBC (Manual) 122 0-200 CUMM Body Fluid RBC (Manual) 4772 H 0-2000 CUMM Body Fluid Mononuclear Cells 90 % Body Fluid Polymorphonuclear Cells 10 0-25 % White Blood Count 5.6 4.4-10.8 10^3/uL Red Blood Count 3.14 L 4.5-5.90 10^6/uL Hemoglobin 10.3 L 13.5-17.5 g/dL Hematocrit 29.9 #L 41.0-53.0 % Mean Corpuscular Volume 95.3 80.0-100.0 fL Mean Corpuscular Hemoglobin 32.7 H 28.0-32.0 pg Mean Corpuscular Hemoglobin Concent 34.3 32.0-36.0 g/dL Red Cell Distribution Width 15.1 H 11.8-14.3 % Platelet Count 162 140-450 10^3/uL Mean Platelet Volume 8.1 6.9-10.8 fL Neutrophils (%) (Auto) 59.5 37.0-80.0 % Lymphocytes (%) (Auto) 23.9 10.0-50.0 % Monocytes (%) (Auto) 12.5 H 0.0-12.0 % Eosinophils (%) (Auto) 3.0 0.0-7.0 % Basophils (%) (Auto) 1.1 0.0-2.0 % Neutrophils # (Auto) 3.4 1.6-8.6 10 ^3/uL Lymphocytes # (Auto) 1.3 0.4-5.4 10 ^3/uL Monocytes # (Auto) 0.7 0-1.3 10 ^3/uL Eosinophils # (Auto) 0.2 0-0.8 10 ^3/uL Basophils # (Auto) 0.1 0-0.2 10 ^3/uL Nucleated Red Blood Cells 0.3 % Sodium Level 140 136-145 mmol/L Potassium Level 3.9 3.5-5.1 mmol/L Chloride Level 111 H 98-107 mmol/L Carbon Dioxide Level 22 20-31 mmol/L Anion Gap 7 5-15 Blood Urea Nitrogen 11 9-23 mg/dL Creatinine 0.82 0.700-1.30 mg/dL Glomerular Filtration Rate Calc 112 >90 mL/min BUN/Creatinine Ratio 13.4 10.0-20.0 Serum Glucose 120 H 74-106 mg/dL Calcium Level 8.3 L 8.7-10.4 mg/dL Total Bilirubin 1.0 0.2-1.0 mg/dL Aspartate Amino Transferase (AST) 83 H 13-40 U/L Alanine Aminotransferase (ALT) 25 7-40 U/L Alkaline Phosphatase 165 H 46-116 U/L Lactate Dehydrogenase 274 H 120-246 U/L Total Protein 7.1 5.7-8.2 g/dL Albumin 2.4 L 3.2-4.8 g/dL Prothrombin Time 13.2 H 9.3-11.8 sec Prothrombin Time INR 1.28 H 0.9-1.15 Activated Partial Thromboplast Time 29.4 24.5-34.5 SEC Urine Color Yellow Yellow Urine Clarity Clear Clear Urine pH 6.0 5.0-9.0 Urine Specific [place] 1.019 1.001-1.035 Urine Protein Negative Negative Urine Ketones Negative Negative Urine Blood Negative Negative /uL Urine Nitrite Negative Negative Urine Bilirubin Negative Negative Urine Urobilinogen 6 Negative mg/dL Urine Leukocyte Esterase Negative Negative /uL Urine RBC None seen 0 - 3 /hpf Urine WBC <1 0 - 3 /hpf Urine Squamous Epithelial Cells Few <5 /hpf Urine Bacteria Few H None Seen /hpf Urine Mucus Few None Seen Urine Glucose Trace Normal mg/dL Test 03/24/24 11:38 Range/Units Ammonia 108 H 11-32 umol/L PATIENT: JESUS ALBERTO MALDONADO JR ACCT: [id number] UNIT: [id number] : 1980 LOC: ER ROOM / BED: / AGE / SEX: 43 / M ADM STATUS: REG ER SERVICE 1115 ORDERING PHYSICIAN: HANNAH YUNG MD PROCEDURE(s): ABPL - CT AB PEL WO CON-NO ORAL OR IV REASON: abd pain/distention ORDER NUMBER(s): [id number], ACCESSION NUMBER(s): [id number] Exam: CT CT AB PEL WO CON-NO ORAL OR IV History: abd pain/distention Comparison Study: Ultrasound of the abdomen dated 03/01/2024 Technique: Multidetector spiral CT of the abdomen and pelvis was performed from lung bases to pubic symphysis. Imaging was performed without intravenous contrast. Coronal and sagittal multiplanar reformats were obtained from the axial data set by the technologist. Radiation Dose : 1. Abdomen/Pelvis: CTDIvol 24.21 mGy, DLP 1566.5 mGy*cm. Findings: Evaluation of vasculature and solid organs is limited due to lack of intravenous contrast use. Lung Bases: Bilateral lower lobe atelectasis. Visualized portions of the heart and pericardium are unremarkable. Liver: The liver is shrunken and nodular in contour. Gallbladder and Biliary Tree: The gallbladder is unremarkable. No intrahepatic or extrahepatic biliary ductal dilatation. Spleen: Spleen is enlarged measuring 16.7 cm. Pancreas: The pancreas is grossly unremarkable. Adrenal Glands: Unremarkable Kidneys: Kidneys are unremarkable without calculi or hydronephrosis. GI tract: The stomach is grossly normal in appearance. No evidence of small bowel wall thickening or abnormal dilatation to suggest bowel obstruction. The colon is unremarkable. The appendix is visualized and is normal. Peritoneum/mesentery/retroperitoneum. No evidence of free intraperitoneal air. Large volume abdominopelvic ascites. Increased number of mesenteric, periportal and retroperitoneal lymph nodes. A right para-aortic lymph node measures 1.6 cm in short axis. Abdominal Wall: Unremarkable. Vasculature: The visualized abdominal aorta is normal in size and caliber. Evaluation of abdominal and pelvic vessels is limited due to lack of intravenous contrast. Urinary Bladder: Grossly unremarkable for degree of distention. Pelvic Organs: Unremarkable Musculoskeletal: No aggressive focal bony lesions, acute fractures or dislocation. Soft tissues: Body wall anasarca. IMPRESSION: 1. Cirrhosis and stigmata of portal hypertension. 2. Large volume ascites. Assessment/impression: Assessment GI Assessment: # hypochromic normocytic anemia # chronic alcoholism with 2:1 LFT pattern # ammonia elevated, but no encephalopathy # liver cirrhosis with stigmata of portal hypertension # hypoalbuminemia # liver cirrhosis, cause yet to be determined, negative for hepatitis-B and C test previously # ascites with large volume paracentesis 10.5 L status post IV albumin # cocaine abuse, serum positive for cocaine abuse from 02/29/2024 # medical noncompliance Plan/Recommendation GI Plan: #Medications: Continue home medications, avoid acetaminophen in high doses, continue lactulose to have soft formed stool 2 to 3 times a day. #Labs: Outpatient close follow up of CMP in regular intervals. Follow up ammonia. #Imaging/other work up: As needed outpatient #Procedure: Intermittent paracentesis, can be scheduled as outpatient on monthly basis. #Others: Avoid drugs, alcohol and hepatotoxic drugs. #please scheduled follow up with GI as outpatient with Dr. Grzegorz Marion. Patient is given adequate information regarding outpatient close follow up to evaluate the cause of liver cirrhosis and further treatment of ascites with scheduled paracentesis. Thank you so much for the opportunity to consult on your patient. GI team signing off the patient. In case of any questions or concerns please feel free to reach out. Case an action plan discussed with Dr. Antonina Marion. Complex care planning needed total 41 minutes of detailed discussion. The patient and caregiver team agreed to the plan. Plan discussed with: Patient, Other (Primary team) AISHA GEORGES RESIDENT Mar 25, 2024 16:23
--- NOTE | 2024-03-25 16:58 | DVHDS2 ---
Discharge Summary Date of Admission Mar 24, 2024 at 16:36 Date of Discharge: Mar 25, 2024 Admitting Diagnosis Ascites Labs/Diagnostic Data: Laboratory Results Test 03/25/24 11:50 03/25/24 06:21 03/24/24 17:13 03/24/24 12:30 Body Fluid Source Peritoneal fluid Body Fluid pH 9 Body Fluid WBC (Manual) 122 CUMM (0-200) Body Fluid RBC (Manual) 4772 CUMM (0-2000) Body Fluid Mononuclear Cells 90 % Body Fluid Polymorphonuclear Cells 10 % (0-25) White Blood Count 5.6 10^3/uL (4.4-10.8) Red Blood Count 3.14 10^6/uL (4.5-5.90) Hemoglobin 10.3 g/dL (13.5-17.5) Hematocrit 29.9 % (41.0-53.0) Mean Corpuscular Volume 95.3 fL (80.0-100.0) Mean Corpuscular Hemoglobin 32.7 pg (28.0-32.0) Mean Corpuscular Hemoglobin Concent 34.3 g/dL (32.0-36.0) Red Cell Distribution Width 15.1 % (11.8-14.3) Platelet Count 162 10^3/uL (140-450) Mean Platelet Volume 8.1 fL (6.9-10.8) Neutrophils (%) (Auto) 59.5 % (37.0-80.0) Lymphocytes (%) (Auto) 23.9 % (10.0-50.0) Monocytes (%) (Auto) 12.5 % (0.0-12.0) Eosinophils (%) (Auto) 3.0 % (0.0-7.0) Basophils (%) (Auto) 1.1 % (0.0-2.0) Neutrophils # (Auto) 3.4 10 ^3/uL (1.6-8.6) Lymphocytes # (Auto) 1.3 10 ^3/uL (0.4-5.4) Monocytes # (Auto) 0.7 10 ^3/uL (0-1.3) Eosinophils # (Auto) 0.2 10 ^3/uL (0-0.8) Basophils # (Auto) 0.1 10 ^3/uL (0-0.2) Nucleated Red Blood Cells 0.3 % Sodium Level 140 mmol/L (136-145) Potassium Level 3.9 mmol/L (3.5-5.1) Chloride Level 111 mmol/L (98-107) Carbon Dioxide Level 22 mmol/L (20-31) Anion Gap 7 (5-15) Blood Urea Nitrogen 11 mg/dL (9-23) Creatinine 0.82 mg/dL (0.700-1.30) Glomerular Filtration Rate Calc 112 mL/min (>90) BUN/Creatinine Ratio 13.4 (10.0-20.0) Serum Glucose 120 mg/dL (74-106) Calcium Level 8.3 mg/dL (8.7-10.4) Total Bilirubin 1.0 mg/dL (0.2-1.0) Aspartate Amino Transferase (AST) 83 U/L (13-40) Alanine Aminotransferase (ALT) 25 U/L (7-40) Alkaline Phosphatase 165 U/L (46-116) Lactate Dehydrogenase 274 U/L (120-246) Total Protein 7.1 g/dL (5.7-8.2) Albumin 2.4 g/dL (3.2-4.8) Prothrombin Time 13.2 sec (9.3-11.8) Prothrombin Time INR 1.28 (0.9-1.15) Activated Partial Thromboplast Time 29.4 SEC (24.5-34.5) Urine Color Yellow (Yellow) Urine Clarity Clear (Clear) Urine pH 6.0 (5.0-9.0) Urine Specific [place] 1.019 (1.001-1.035) Urine Protein Negative (Negative) Urine Ketones Negative (Negative) Urine Blood Negative /uL (Negative) Urine Nitrite Negative (Negative) Urine Bilirubin Negative (Negative) Urine Urobilinogen 6 mg/dL (Negative) Urine Leukocyte Esterase Negative /uL (Negative) Urine RBC None seen /hpf (0 - 3) Urine WBC <1 /hpf (0 - 3) Urine Squamous Epithelial Cells Few /hpf (<5) Urine Bacteria Few /hpf (None Seen) Urine Mucus Few (None Seen) Urine Glucose Trace mg/dL (Normal) Test 03/24/24 11:38 Ammonia 108 umol/L (11-32) Other Laboratory Tests 03/25/24 06:21 Brief Hx & Hospital Course: History of Present Illness The patient is a 43-year-old male with past medical history of liver disease, hypertension, and diabetes mellitus who presented to [facility] ED with complaint of abdominal distention. Patient reports he was admitted at this hospital in February 2024 to get a paracentesis done, but ended up leaving against medical advice because he was being told his abdomen was not "distended enough to be drained". Patient reports symptoms progressively get worse with shortness of breaths, abdominal discomfort, difficulty bending, movement, getting worse that prompted this visit. Patient was seen and evaluated in the ED, laboratory data shows WBC 6.5, platelets 199, sodium 140, potassium 3.5, BUN 10, creatinine 0.75, GFR 116, glucose 80, AST 77, ALT 32, calcium 8.4, albumin 2.7, ammonia 108, blood pressure 121/85, heart rate 104, temperature 99.0 F, O2 saturation 97% on oxygen. Abdomen/pelvis CT revealing cirrhosis and stigmata of portal hypertension, last volume ascites. Patient was started on lactulose 30 mL by mouth, scheduled for possible ultrasound-guided paracentesis, please see medication orders section in the computer. On my assessment, patient denied chest pain, no headache, no dizziness, no diaphoresis, no abdominal pain at this moment, no diarrhea, no nausea, no vomiting, no fever, no chills. Patient was admitted for further evaluation and medical management. Course of hospitalization: Patient underwent paracentesis with 10 L removed. GI consultation was placed. Patient was decided to leave against medical advice before being evaluated by myself. Consults/Reason for consult Gastroenterology: Ascites Condition at Discharge: Undetermined Final Diagnosis/Problems List Ascites Secondary Diagnosis: Acute metabolic encephalopathy, likely due to liver cirrhosis Ascites, likely due to liver cirrhosis Liver cirrhosis, likely due to alcohol use disorder Volume overload, likely due to liver cirrhosis Transaminitis, likely due to alcohol use disorder Uncontrolled diabetes mellitus type 2 Cocaine use disorder Active smoker Mild anemia, normocytic, hyperchromic Acquired coagulopathy likely due to liver cirrhosis Hyperkalemia Thrombocytopenia, likely due to liver cirrhosis Hypertension Morbid obesity Multiple substance abuse Discharge Disposition: AMA 36 Discharge Statement: "Patient was advised to return to the ER or call 911 if any headaches, dizziness, shortness of breath, chest pain, abdominal pain, bleeding, fevers, or worsening of medical condition. Patient was counseled about treatment plan, medications, possible side effects, patientverbalized understanding. All questions were answered to the best of my ability. This discharge took greater then 30 minutes in planning, reviewing documentation, counseling the patient, and discussing with other team members." ASSESSMENT ASSESSMENT Assessment Date of Service: Mar 25, 2024 Billing Provider: BRODIE ROJAS NP Common Visit Codes: 38523-QCP/OBS DISCH DAY <30MIN BRODIE ROJAS NP Mar 25, 2024 16:58
[2024-03-26 13:06] LABS: Protein, Body Fluid 0.8 g/dL (.)
[2024-03-27 09:50] LABS: Hepatitis B Surface Antigen Negative (Negative); Hepatitis C Antibody Negative (Negative)
== END 2024-03-25 14:30 | disposition left against medical advice (07) | DRG 280 ==
LOC: ER 08:55 → EDBD 08:55 → OVERFLOW 16:36 → EAST 21:30
PROVIDERS: ADMIT Nurse Practitioner Family; ATTEND Nurse Practitioner Acute Care
PROC: 0W9G3ZX Drainage of Peritoneal Cavity, Percutaneous Approach, Diagnostic (ICD-10-PCS; principal; 2024-03-25)
DX: K70.31 Alcoholic cirrhosis of liver with ascites (principal); K70.40 Alcoholic hepatic failure without coma; G93.41 Metabolic encephalopathy; D68.4 Acquired coagulation factor deficiency; K76.6 Portal hypertension; D69.59 Other secondary thrombocytopenia; D50.9 Iron deficiency anemia, unspecified; E11.9 Type 2 diabetes mellitus without complications; E66.01 Morbid (severe) obesity due to excess calories; Z53.29 Procedure and treatment not carried out because of patient's decision for other reasons; E87.5 Hyperkalemia; E87.70 Fluid overload, unspecified; F14.10 Cocaine abuse, uncomplicated; F10.10 Alcohol abuse, uncomplicated; I10 Essential (primary) hypertension; F17.200 Nicotine dependence, unspecified, uncomplicated; Z79.899 Other long term (current) drug therapy; Z79.4 Long term (current) use of insulin; Z91.199 Patient's noncompliance with other medical treatment and regimen due to unspecified reason; Z68.38 Body mass index [BMI] 38.0-38.9, adult; Y90.9 Presence of alcohol in blood, level not specified
CPT/HCPCS: 36415; 49083; 74176; 76705; 76942; 80053; 81001; 82140; 83615; 83986; 85025; 85610; 85730; 86803; 87205; 87340; 89051; 96365; 96375; G0378; J2405; P9047